=== PATIENT | male | born 1995 | race Caucasian/White ===

== ENCOUNTER 2016-04-25 17:00 | Outpatient (CLI) | payer BC, OTHER | END 2016-04-25 17:01 | disposition home or self-care (01) | DX: K76.0 Fatty (change of) liver, not elsewhere classified (principal); J18.9 Pneumonia, unspecified organism ==

== ENCOUNTER 2017-11-21 21:21 | Emergency (ER) | payer OTHER ==
[2017-11-21 21:30] VITALS: BP 129/75
[2017-11-21] MEDS ORDERED: IBUPROFEN 800 MG TABLET PO STA (21:40)
--- NOTE | 2017-11-21 21:41 | ED Physician Documentation ---
PD HPI LOWER EXT INJURY - Stated complaint Stated Complaint: RT KNEE PX - Chief complaint Chief Complaint: Ext Problem - History obtained from History obtained from: Patient, Family - History of Present Illness PD HPI LOW EXT INJURY LOCATION: Right, Knee (He was sitting crosslegged on a curb and went to get up and he felt a pop in the anterolateral right knee and severe pain when he moves it now. He is unable to walk.) Review of Systems Constitutional: reports: Reviewed and negative Cardiac: reports: Reviewed and negative Respiratory: reports: Reviewed and negative PD PAST MEDICAL HISTORY - Past Medical History Respiratory: Asthma - Past Surgical History Past Surgical History: No - Present Medications Home Medications: Ambulatory Orders Medication Instructions Recorded Confirmed Albuterol 2.5 mg INH Q4H PRN 02/02/16 02/02/16 Azithromycin [Zithromax] 250 mg PO DAILY #4 tablet 02/02/16 predniSONE [Prednisone] 40 mg PO DAILY 5 Days tablet 02/02/16 Wheelchair 1 each MC ONCE #1 each 11/21/17 - Allergies Allergies/Adverse Reactions: Allergies Allergy/AdvReac Type Severity Reaction Status Date / Time morphine AdvReac Emesis Verified 02/02/16 03:03 - Social History Does the pt smoke?: Yes Smoking Status: Current some day smoker Does the pt drink ETOH?: No Does the pt have substance abuse?: No - Immunizations Immunizations are current?: Yes Immunizations: TDAP current <10years - POLST Patient has POLST: No PD ED PE NORMAL - Vitals Vital signs reviewed: Yes - General General: Alert and oriented X 3, No acute distress - Extremities Extremities: Other (Right knee: There is a small effusion, no warmth or redness. He is holding it mostly flexed, cannot straighten it all the way. Tender especially on the lateral joint line. ACL and PCL are intact. MCL and LCL seem mostly intact but with a lot of pain especially with LCL testing. Unable to complete grind testing due to pain.) - Neuro Neuro: Alert and oriented X 3, Normal speech Results - Vitals Vitals: Vital Signs - 24 hr 11/21/17 21:28 Temperature 37.2 C Heart Rate 110 H Respiratory 18 Rate Blood Pressure 129/75 O2 Saturation 97 Oxygen O2 Source Room air - Rads (name of study) R knee 4v Radiology: EMP read contemporaneously (normal) PD MEDICAL DECISION MAKING - Sepsis Event Vital Signs: Vital Signs - 24 hr 11/21/17 21:28 Temperature 37.2 C Heart Rate 110 H Respiratory 18 Rate Blood Pressure 129/75 O2 Saturation 97 Oxygen O2 Source Room air Departure - Departure Disposition: 01 Home, Self Care Clinical Impression: Internal derangement of right knee Condition: Good Record reviewed to determine appropriate education?: Yes Instructions: ED Meniscal Injury Knee Poss Follow-Up: Brown Roth MD [Provider Admit Priv/Credential] - Within 1 week Prescriptions: Wheelchair 1 each MC ONCE #1 each Forms: Activity restrictions
--- NOTE | 2017-11-21 22:14 | XRAY Report ---
Procedure Date: 11/21/2017 Accession Number: [id number] / [id number] Procedure: XR - Knee 4 View RT CPT Code: FULL RESULT: EXAM: RIGHT KNEE RADIOGRAPHY EXAM DATE: 11/21/2017 09:56 PM. CLINICAL HISTORY: R knee pain. COMPARISON: XR KNEE 3 VIEW 08/19/2007. TECHNIQUE: 3 views. FINDINGS: Bones: Normal. No fractures or bone lesions. Joints: Normal. No effusion. No subluxations. Soft Tissues: Normal. No soft tissue swelling. IMPRESSION: Normal knee radiography. [facility]
== END 2017-11-21 23:32 | disposition home or self-care (01) ==
LOC: ED 21:21
DX: M23.91 Unspecified internal derangement of right knee (principal); F17.200 Nicotine dependence, unspecified, uncomplicated
CPT/HCPCS: 1040M; 73564; 99283; A9270

== ENCOUNTER 2021-02-03 08:00 | Outpatient (CLI) | payer BC, OTHER ==
[2021-02-04 01:47] LABS: CHLAMYDIA TRACHOMATIS DNA NEGATIVE (NEGATIVE); NEISSERIA GONORRHOEAE DNA NEGATIVE (NEGATIVE)
== END 2021-02-03 23:59 | disposition home or self-care (01) ==
LOC: LAB 08:00
PROVIDERS: ATTEND Family Medicine
DX: Z11.3 Encounter for screening for infections with a predominantly sexual mode of transmission (principal)
CPT/HCPCS: 87491; 87591; 87661

== ENCOUNTER 2021-02-04 07:26 | Outpatient (CLI) | payer OTHER ==
[2021-02-05 08:26] LABS: HEPATITIS B CORE AB TOTAL NON-REACTIVE (NON-REACTIVE)
[2021-02-05 09:57] LABS: HIV AG/AB 4TH GEN NON-REACTIVE (NON-REACTIVE)
[2021-02-06 14:02] LABS: HSV 2 IGG TYPE SPECIFIC AB <0.90 index
== END 2021-02-04 07:27 | disposition home or self-care (01) ==
LOC: LAB.N 07:26
PROVIDERS: ATTEND Family Medicine
DX: Z11.3 Encounter for screening for infections with a predominantly sexual mode of transmission (principal)
CPT/HCPCS: 36415; 81599; 86592; 86695; 86696; 86704; 87389